=== PATIENT | female | born 1995 | race Caucasian/White ===

== ENCOUNTER 2021-12-25 21:15 | Inpatient (IN) | payer OTHER ==
[2021-12-25] MEDS ORDERED: PROMETHAZINE HCL 25 MG/1 ML VIAL IVPUSH ONE (22:01)
[2021-12-25] MEDS ORDERED: BUTORPHANOL TARTRATE 2 MG/ML VIAL IVPB ONE (22:01)
[2021-12-25] MEDS ORDERED: ELECTROLYTE-148 SOLN 1,000 ML IV SCH (22:15)
[2021-12-26] MEDS ORDERED: PROMETHAZINE HCL 25 MG/1 ML VIAL ONE
[2021-12-26] MEDS ORDERED: BUTORPHANOL TARTRATE 2 MG/ML VIAL ONE
[2021-12-26 00:24] LABS: BASO % 0.1 % (0-2.0); EOS % 0.3 % (0-4.5); HEMATOCRIT 32.2 % (32.4-45.2); HEMOGLOBIN 10.7 GM/dL (10.7-15.3); LYMPH % 22.8 % (8-40); MCHC 33.3 g/dl (32.0-36.0); MEAN PLT VOLUME 9.7 fl (7.5-11.1); MONO % 7.4 % (3.8-10.2); NEUT % 69.4 % (42.8-82.8); PLATELET COUNT 200 10^3/uL (134-434); RBC 3.83 M/mm3 (3.60-5.2); RDW 13.6 % (11.6-15.6); WHITE BLOOD COUNT 11.6 K/mm3 (4.0-10.0)
[2021-12-26 00:36] LABS: INR 0.93 (0.83-1.09); PROTHROMBIN TIME (PATIENT) 10.7 SEC (9.7-13.0)
[2021-12-26 00:39] LABS: ACTIVATED PTT 26.3 SECONDS (25.2-36.5)
[2021-12-26 00:45] LABS: BLOOD UREA NITROGEN 5.8 mg/dL (7-18)
[2021-12-26 00:47] LABS: CREATININE 0.6 mg/dL (0.55-1.3)
[2021-12-26 00:49] LABS: BILIRUBIN,TOTAL 0.3 mg/dL (0.2-1); TOT PROT 6.8 g/dl (6.4-8.2)
[2021-12-26] MEDS ORDERED: LIDOCAINE HCL 1% PRESERVATIVE FREE - 30ML VIAL ONE (00:54)
[2021-12-26] MEDS ORDERED: OXYTOCIN 20 UNITS in 0.9% NS 20 UNIT/1,000 ML INFUS.BAG IV ONE (00:54)
[2021-12-26 01:11] LABS: SYPHILIS W/ RPR CONF NON-REACTIVE (NONREACTIVE)
[2021-12-26 01:40] LABS: HIV INTERPRETATION NEGATIVE (NEGATIVE)
[2021-12-26 01:41] VITALS: BMI 32.5
[2021-12-26] MEDS ORDERED: FENTANYL/BUPIVACAINE/NS/PF - PCEA - 50 ML DISP.SYRIN EP ONE (01:47)
[2021-12-26] MEDS ORDERED: BUPIVACAINE HCL/PF 0.25% (2.5MG/ML) 10 ML VIAL ONE (01:52)
[2021-12-26] MEDS ORDERED: NALOXONE HCL 0.4 MG/ML VIAL IVPUSH PRN (02:19)
[2021-12-26] MEDS ORDERED: FENTANYL/BUPIVACAINE/NS/PF - PCEA - 50 ML DISP.SYRIN EP SCH (02:30)
[2021-12-26 02:47] LABS: URINE APPEARANCE CLEAR; URINE BILIRUBIN NEGATIVE (NEGATIVE); URINE COLOR YELLOW; URINE GLUCOSE (UA) NEGATIVE (NEGATIVE); URINE KETONE 1+ (NEGATIVE); URINE LEUK ESTERASE NEGATIVE (NEGATIVE); URINE NITRITE NEGATIVE (NEGATIVE); URINE PROTEIN NEGATIVE (NEGATIVE); URINE UROBILINOGEN 0.2 mg/dL (0.2-1.0)
[2021-12-26] MEDS ORDERED: METHYLERGONOVINE MALEATE 0.2 MG/1 ML AMP IM PRN (05:19)
[2021-12-26] MEDS ORDERED: BISACODYL 10 MG SUPP.RECT RC PRN (05:19)
[2021-12-26] MEDS ORDERED: ACETAMINOPHEN 325 MG TABLET (FP) PO PRN (05:19)
[2021-12-26] MEDS ORDERED: oxyCODONE HCL 5 MG TABLET PO PRN (05:19)
[2021-12-26] MEDS ORDERED: WITCH HAZEL 50% (TUCKS) 40 PAD/JAR PAD TP PRN (05:19)
[2021-12-26] MEDS ORDERED: BENZOCAINE 20% 57 GM BOTTLE TP PRN (05:19)
[2021-12-26] MEDS ORDERED: BENZOCAINE 28 GM HEMORRHOIDAL OINTMENT TP PRN (05:19)
[2021-12-26] MEDS ORDERED: OXYTOCIN 20 UNITS in 0.9% NS 20 UNIT/1,000 ML INFUS.BAG IV SCH (05:30)
[2021-12-26 06:21] LABS: CORD BASE EXCESS -7.2 mmol/L (0-2); CORD HCO3 20.4 mmHg (20-29); CORD PCO2 48.2 mmHg (30-78); CORD pH 7.244 (7.14-7.44)
[2021-12-26] MEDS: PRENATAL VITAMINS W/ FOLIC ACID TABLET (FP) PO SCH (09:14)
[2021-12-26] MEDS: IBUPROFEN 600 MG TABLET (FP) PO PRN ×3 (09:14→22:02)
[2021-12-26] MEDS: FERROUS SO4 325 MG TABLET (FP) PO SCH ×3 (09:14→16:30)
[2021-12-27 07:58] LABS: BASO % 0.2 % (0-2.0); EOS % 0.3 % (0-4.5); HEMATOCRIT 31.8 % (32.4-45.2); HEMOGLOBIN 10.6 GM/dL (10.7-15.3); LYMPH % 34.1 % (8-40); MCHC 33.4 g/dl (32.0-36.0); MEAN CELL VOLUME 83.8 fl (80-96); MEAN PLT VOLUME 9.8 fl (7.5-11.1); MONO % 7.2 % (3.8-10.2); NEUT % 58.2 % (42.8-82.8); PLATELET COUNT 190 10^3/uL (134-434); RBC 3.79 M/mm3 (3.60-5.2); RDW 13.9 % (11.6-15.6); WHITE BLOOD COUNT 9.9 K/mm3 (4.0-10.0)
[2021-12-27] MEDS: PRENATAL VITAMINS W/ FOLIC ACID TABLET (FP) PO SCH (09:47)
[2021-12-27] MEDS: FERROUS SO4 325 MG TABLET (FP) PO SCH ×2 (09:47→13:05)
[2021-12-27] MEDS: IBUPROFEN 600 MG TABLET (FP) PO PRN (09:48)
[2021-12-27 13:27] VITALS: BP 117/67; PULSE 76; TEMP 36.6
[2021-12-27] MEDS ORDERED: SENNOSIDES/DOCUSATE COMBO (SENNA PLUS) TABLET (UD) PO PRN (22:00)
== END 2021-12-27 17:00 | disposition home or self-care (01) | DRG 807 ==
LOC: JDEL 21:15 → JLDR 23:10 → J3W 12-26 08:00
PROVIDERS: ADMIT Obstetrics & Gynecology; ATTEND Obstetrics & Gynecology
PROC: 10E0XZZ Delivery of Products of Conception, External Approach (ICD-10-PCS; principal; 2021-12-26)
DX: O80 Encounter for full-term uncomplicated delivery (principal); Z37.0 Single live birth; Z3A.38 38 weeks gestation of pregnancy
CPT/HCPCS: 36415; 36600; 59409; 71046-TC-FY; 80053; 81003; 82803; 85025; 85610; 85730; 86762; 86780; 86850; 86900; 86901; 87340; 87389; C9803-CS; U0003; U0005